=== PATIENT | female | born 1990 | race Two or more races ===

== ENCOUNTER 2017-04-12 17:01 | Emergency (ER) | payer MEDICAID, OTHER ==
[~2017-04-12] VITALS: Ht 162.6 cm; Wt 8.0 kg
[2017-04-12] MEDS ORDERED: ACETAMINOPHEN 325MG TABLET PO ONE (20:30)
[2017-04-12 22:24] VITALS: BP 106/65
== END 2017-04-12 22:42 | disposition home or self-care (01) ==
LOC: ER 17:01
DX: S69.91XA Unspecified injury of right wrist, hand and finger(s), initial encounter (principal); X58.XXXA Exposure to other specified factors, initial encounter; Y93.89 Activity, other specified; Y92.89 Other specified places as the place of occurrence of the external cause; Y99.8 Other external cause status
CPT/HCPCS: 29125; 73100; 81025; 99284

== ENCOUNTER 2017-11-25 18:48 | Emergency (ER) | payer OTHER ==
[~2017-11-25] VITALS: Ht 162.6 cm; Wt 97.0 kg
[2017-11-25 20:05] LABS: CLARITY URINE CLEAR (CLEAR); COLOR URINE YELLOW (YELLOW); KETONES URINE TRACE (NEGATIVE); LEUKOCYTE ESTERASE URINE TRACE (NEGATIVE); NITRITE URINE NEGATIVE (NEGATIVE); OCCULT BLOOD URINE 1+ (NEGATIVE); PH URINE 5.5 (4.5-8.0); PROTEIN URINE NEGATIVE (NEGATIVE); SPECIFIC GRAVITY URINE 1.028 (1.005-1.030); UROBILINOGEN URINE 0.2 E.U./dL (0.2-1.0)
[2017-11-25 23:55] LABS: BASOPHILS % 0.9 % (0.0-2.0); EOSINOPHILS % 1.6 % (0.0-5.0); HEMATOCRIT. 38.5 % (36.0-48.0); HEMOGLOBIN. 12.9 g/dL (12.0-16.0); LYMPHOCYTES % 34.5 % (20.0-50.0); MEAN CORPUSCULAR HEMOGLOBIN 29.4 pg (28.0-32.0); MEAN CORPUSCULAR VOLUME 87.7 fL (81.0-99.0); MEAN PLATELET VOLUME 8.3 fl (7.4-10.4); MONOCYTES % 9.3 % (2.0-8.0); NEUTROPHILS % 53.7 % (40.0-76.0); PLATELET 206 x1000/uL (130-400); RED BLOOD CELL COUNT 4.39 mill/uL (4.2-5.4); RED CELL DISTRIBUTION WIDTH 14.2 % (11.6-14.6)
[2017-11-25 23:56] LABS: CHLORIDE 109 mEq/L (98-107)
[2017-11-25 23:59] LABS: PROTHROMBIN TIME 10.5 sec (9.4-11.6)
[2017-11-26 00:20] LABS: B-HCG QUANTITATIVE 2634 mIU/mL (<3)
[2017-11-26 03:25] VITALS: BP 119/65
== END 2017-11-26 03:33 | disposition home or self-care (01) ==
LOC: ER 21:20
DX: O02.1 Missed abortion (principal); O23.41 Unspecified infection of urinary tract in pregnancy, first trimester; Z3A.12 12 weeks gestation of pregnancy
CPT/HCPCS: 36415; 76801; 76817; 80053; 81003; 81025; 84702; 85025; 85610; 86850; 86900; 86901; 99285; Z7610

== ENCOUNTER 2019-11-13 17:44 | Inpatient (IN) | payer MEDICAID, OTHER ==
[~2019-11-13] VITALS: Ht 162.6 cm; Wt 99.8 kg
[2019-11-13 19:14] LABS: BASOPHILS % 0.7 % (0.0-2.0); HEMATOCRIT. 39.1 % (36.0-48.0); HEMOGLOBIN. 13.3 g/dL (12.0-16.0); LYMPHOCYTES % 23.2 % (20.0-50.0); MEAN CORPUSCULAR HEMOGLOBIN 29.4 pg (28.0-32.0); MEAN CORPUSCULAR VOLUME 86.2 fL (81.0-99.0); MEAN PLATELET VOLUME 8.7 fl (7.4-10.4); MONOCYTES % 7.5 % (2.0-8.0); NEUTROPHILS % 67.6 % (40.0-76.0); PLATELET 237 x1000/uL (130-400); RED BLOOD CELL COUNT 4.53 mill/uL (4.2-5.4); RED CELL DISTRIBUTION WIDTH 14.2 % (11.6-14.6)
[2019-11-13 19:19] LABS: CHLORIDE 112 mEq/L (98-107)
[2019-11-13 19:23] LABS: ETHANOL BLOOD < 10 mg/dL
[2019-11-13] MEDS ORDERED: ACETAMINOPHEN 500MG TABLET PO ONE (20:30)
[2019-11-14 02:56] LABS: CLARITY URINE CLOUDY (CLEAR); COLOR URINE YELLOW (YELLOW); KETONES URINE 2+ (NEGATIVE); LEUKOCYTE ESTERASE URINE TRACE (NEGATIVE); NITRITE URINE NEGATIVE (NEGATIVE); OCCULT BLOOD URINE NEGATIVE (NEGATIVE); PH URINE 5.5 (4.5-8.0); PROTEIN URINE TRACE (NEGATIVE); SPECIFIC GRAVITY URINE 1.036 (1.005-1.030)
[2019-11-14 03:12] LABS: *BENZODIAZEPINES SCREEN URINE NEGATIVE (NEGATIVE); *COCAINE SCREEN URINE NEGATIVE (NEGATIVE); METHADONE URINE SCREEN NEGATIVE (NEGATIVE); OPIATES URINE SCREEN NEGATIVE (NEGATIVE)
[2019-11-14 03:13] LABS: *AMPHETAMINES SCREEN URINE NEGATIVE (NEGATIVE); *BARBITURATES SCREEN URINE NEGATIVE (NEGATIVE); CANNABINOID URINE SCREEN NEGATIVE (NEGATIVE); PHENCYCLIDINE URINE SCREEN NEGATIVE (NEGATIVE)
[2019-11-14] MEDS ORDERED: ACETAMINOPHEN 325MG TABLET PO PRN (06:30)
[2019-11-14] MEDS ORDERED: CEFTRIAXONE 1 G PREMIX 50 ML IV SCH (08:00)
[2019-11-14] MEDS: ASPIRIN 325MG EC TABLET PO SCH (08:39)
[2019-11-14] MEDS ORDERED: ONDANSETRON HCL 4MG/2ML INJ IV PRN (10:00)
[2019-11-14 16:00] VITALS: BP 106/64
[2019-11-14 16:01] VITALS: BP 106/64
[2019-11-14 20:00] VITALS: BP 105/60
[2019-11-15] VITALS: BP 95/52
[2019-11-15 04:00] VITALS: BP 101/62
[2019-11-15 08:00] VITALS: BP 106/63
[2019-11-15 08:42] LABS: UCG SCREEN NEGATIVE
[2019-11-15] MEDS: ASPIRIN 325MG EC TABLET PO SCH (08:54)
[2019-11-15] MEDS ORDERED: GADOBENATE DIMEGLUMINE 529 MG/ML 10ML IV ONE (11:02)
[2019-11-15 12:00] VITALS: BP 116/74
[2019-11-15 12:03] LABS: T4 FREE 0.95 ng/dL (0.76-1.46)
[2019-11-15 12:17] LABS: FOLIC ACID (FOLATE) SERUM 19.2 ng/mL (>5.38)
[2019-11-15 16:00] VITALS: BP 100/59
[2019-11-15 20:00] VITALS: BP 101/65
[2019-11-15] MEDS: METHYLPREDNISOLONE SOD SUCC 500 MG in DEXT 5% WATER 100 ML IV SCH (21:42)
[2019-11-16] VITALS: BP 95/65
[2019-11-16 04:00] VITALS: BP 94/57
[2019-11-16 05:07] LABS: HIV SCREEN 4G Non Reactive (Non Reactive)
[2019-11-16 06:18] LABS: PROTHROMBIN TIME 10.4 sec (9.6-11.0)
[2019-11-16 08:00] VITALS: BP 102/67
[2019-11-16] MEDS ORDERED: FAMOTIDINE 20MG TABLET PO SCH (09:00)
[2019-11-16 12:00] VITALS: BP 106/66
[2019-11-16] MEDS: METHYLPREDNISOLONE SOD SUCC 500 MG in DEXT 5% WATER 100 ML IV SCH (17:22)
[2019-11-16 19:25] VITALS: BP 101/73
== END 2019-11-16 20:34 | disposition home health service (06) | DRG 43 ==
LOC: ER 17:44 → EDBEDREQ 18:20 → 6EST 20:22 → EDBEDREQ 20:26 → EDBEDREQTM 20:26 → EDBEDREQSVC 11-14 09:01 → EDBEDREQTM 11-14 10:55 → EDBEDREQDT 11-14 10:55 → EDBEDREQSVC 11-14 11:23 → ENRESERV 11-14 13:57
PROVIDERS: ADMIT Internal Medicine; ATTEND Internal Medicine
DX: G35 Multiple sclerosis (principal); E87.8 Other disorders of electrolyte and fluid balance, not elsewhere classified; E66.9 Obesity, unspecified; Z68.37 Body mass index [BMI] 37.0-37.9, adult; Z71.3 Dietary counseling and surveillance
CPT/HCPCS: 36415; 70551; 70552; 72156; 80053; 80305; 80320; 81003; 81025; 82040; 82042; 82607; 82746; 82784; 82962; 83036; 83873; 83916; 84439; 84443; 84481; 85025; 85651; 87389; 93005; 97116; 97162; 97166; 99285; A9577; J0696; J2930; J7060; G0480

== ENCOUNTER 2021-03-27 10:03 | Inpatient (IN) | payer MEDICAID ==
[~2021-03-27] VITALS: Ht 162.6 cm; Wt 107.0 kg
[2021-03-27 10:55] LABS: BASOPHILS % 0.8 % (0.0-2.0); EOSINOPHILS % 0.8 % (0.0-5.0); HEMATOCRIT. 40.1 % (36.0-48.0); HEMOGLOBIN. 13.6 g/dL (12.0-16.0); MEAN CORPUSCULAR HEMOGLOBIN 29.7 pg (28.0-32.0); MEAN CORPUSCULAR VOLUME 87.7 fL (81.0-99.0); MEAN PLATELET VOLUME 8.3 fl (7.4-10.4); MONOCYTES % 7.1 % (2.0-8.0); NEUTROPHILS % 57.3 % (40.0-76.0); PLATELET 226 x1000/uL (130-400); RED BLOOD CELL COUNT 4.58 mill/uL (4.2-5.4); RED CELL DISTRIBUTION WIDTH 14.2 % (11.6-14.6)
[2021-03-27 11:00] LABS: CLARITY URINE CLEAR (CLEAR); COLOR URINE YELLOW (YELLOW); KETONES URINE NEGATIVE (NEGATIVE); LEUKOCYTE ESTERASE URINE 1+ (NEGATIVE); NITRITE URINE NEGATIVE (NEGATIVE); OCCULT BLOOD URINE NEGATIVE (NEGATIVE); PROTEIN URINE NEGATIVE (NEGATIVE); SPECIFIC GRAVITY URINE 1.025 (1.005-1.030)
[2021-03-27] MEDS ORDERED: METHYLPREDNISOLONE SOD SUCC 500 MG in DEXT 5% WATER 100 ML IV ONE (11:00)
[2021-03-27 11:02] LABS: CHLORIDE 108 mEq/L (98-107)
[2021-03-27] MEDS ORDERED: METHYLPREDNISOLONE SOD SUCC 500 MG in DEXT 5% WATER 100 ML IV NR (11:15)
[2021-03-27] MEDS ORDERED: NITROFURANTOIN 100MG M/M CAPSULE PO ONE (16:00)
[2021-03-27 20:00] VITALS: BP 109/64
[2021-03-27] MEDS ORDERED: HYDROCODONE/ACETAMINOPHEN 5/325MG TABLET PO PRN (21:15)
[2021-03-28 00:26] VITALS: BP 96/59
[2021-03-28 04:00] VITALS: BP 103/53
[2021-03-28 08:25] VITALS: BP 105/67
[2021-03-28] MEDS ORDERED: PNEUMOCOCCAL 23-VAL P-SAC VAC 0.5 ML IM ONE (10:00)
[2021-03-28] MEDS ORDERED: NALOXONE HCL 0.4MG/ML VIAL IV PRN (10:45)
[2021-03-28] MEDS ORDERED: METHYLPREDNISOLONE SOD SUCC 500 MG in DEXT 5% WATER 100 ML IV NR (12:00)
[2021-03-28] MEDS: FAMOTIDINE 20MG TABLET PO SCH ×2 (12:05→21:18)
[2021-03-28 12:15] VITALS: BP 105/61
[2021-03-28 16:15] VITALS: BP 113/73
[2021-03-28] MEDS ORDERED: GADOTERATE MEGLUMINE 5 MMOL/10 ML VIAL IV ONE (19:09)
[2021-03-28 20:14] VITALS: BP 101/49
[2021-03-29 00:17] VITALS: BP 94/54
[2021-03-29 04:00] VITALS: BP 95/52
[2021-03-29 08:01] VITALS: BP 86/52
[2021-03-29] MEDS: FAMOTIDINE 20MG TABLET PO SCH ×2 (08:50→20:09)
[2021-03-29] MEDS: METHYLPREDNISOLONE SOD SUCC 500 MG in DEXT 5% WATER 100 ML IV SCH (10:47)
[2021-03-29 11:43] VITALS: BP 93/56
[2021-03-29 16:01] VITALS: BP 94/55
[2021-03-29 20:00] VITALS: BP 115/61
[2021-03-30] VITALS: BP 98/56
[2021-03-30 04:00] VITALS: BP 104/58
[2021-03-30 08:00] VITALS: BP 101/51
[2021-03-30] MEDS: FAMOTIDINE 20MG TABLET PO SCH ×2 (08:15→21:26)
[2021-03-30] MEDS: METHYLPREDNISOLONE SOD SUCC 500 MG in DEXT 5% WATER 100 ML IV SCH (10:37)
[2021-03-30 12:00] VITALS: BP 107/75
[2021-03-30 16:00] VITALS: BP 99/56
[2021-03-30 20:00] VITALS: BP 97/60
[2021-03-31] VITALS: BP 98/53
[2021-03-31 04:00] VITALS: BP 110/55
[2021-03-31 08:00] VITALS: BP 103/62
[2021-03-31] MEDS: FAMOTIDINE 20MG TABLET PO SCH (09:21)
[2021-03-31] MEDS: METHYLPREDNISOLONE SOD SUCC 500 MG in DEXT 5% WATER 100 ML IV SCH (09:48)
[2021-03-31 12:00] VITALS: BP 110/55
[2021-03-31 15:25] VITALS: BP 112/60
[2021-03-31 16:00] VITALS: BP 107/55
== END 2021-03-31 16:45 | disposition home or self-care (01) | DRG 43 ==
LOC: ER 10:03 → 6WST 12:26 → ENRESERV 19:03
PROVIDERS: ADMIT Internal Medicine; ATTEND Internal Medicine
DX: G35 Multiple sclerosis (principal); E87.8 Other disorders of electrolyte and fluid balance, not elsewhere classified; E66.9 Obesity, unspecified; R20.0 Anesthesia of skin; Z91.19 Patient's noncompliance with other medical treatment and regimen; Z68.41 Body mass index [BMI] 40.0-44.9, adult; Z71.3 Dietary counseling and surveillance; N39.0 Urinary tract infection, site not specified
CPT/HCPCS: 36415; 70551; 70552; 71045; 72156; 80053; 81003; 82962; 83880; 84484; 85025; 93005; 97161; 97165; 99285; A9577; J2930; J7060

== ENCOUNTER 2022-06-15 12:25 | Emergency (ER) | payer MEDICAID ==
[~2022-06-15] VITALS: Ht 162.6 cm; Wt 104.0 kg
[2022-06-15 12:28] VITALS: BP 117/78
[2022-06-15] MEDS ORDERED: PREDNISONE 20MG TABLET PO ONE (13:30)
[2022-06-15] MEDS ORDERED: ACETAMINOPHEN 500MG TABLET PO ONE (13:30)
[2022-06-15] MEDS ORDERED: ACET-2708 MT (14:10)
[2022-06-15] MEDS ORDERED: P50 MT (14:10)
== END 2022-06-15 14:58 | disposition home or self-care (01) ==
LOC: ER 12:25
DX: R20.2 Paresthesia of skin (principal); Z98.890 Other specified postprocedural states
CPT/HCPCS: 72125; 81025; 99284; J7512

== ENCOUNTER 2022-09-19 14:46 | Emergency (ER) | payer MEDICAID ==
[~2022-09-19] VITALS: Ht 162.6 cm; Wt 95.0 kg
[~2022-09-19 14:46] MED LIST: ACET-2708 MT; P50 MT
[2022-09-19] MEDS ORDERED: IBUPROFEN 400MG TABLET PO ONE (16:45)
[2022-09-19 17:05] VITALS: BP 125/88
[2022-09-19] MEDS ORDERED: AMOX1TAB16 MT (18:28)
[2022-09-19] MEDS ORDERED: IBUP-2028 MT (18:33)
== END 2022-09-19 18:50 | disposition home or self-care (01) ==
LOC: ER 14:46
DX: J02.9 Acute pharyngitis, unspecified (principal)
CPT/HCPCS: 81025; 87070; 87430; 99283

== ENCOUNTER 2024-10-01 15:17 | Emergency (ER) | payer MEDICAID ==
[~2024-10-01] VITALS: Ht 165.1 cm; Wt 95.2 kg
[~2024-10-01 15:17] MED LIST changes: +AMOX1TAB16 MT; +IBUP-2028 MT
[2024-10-01 15:22] VITALS: TEMP 36.8; O2SAT 98
[2024-10-01 15:23] VITALS: O2SAT 100
[2024-10-01] MEDS: SODIUM CHLORIDE 0.9% 1,000 ML IV ONE (17:15)
[2024-10-01] MEDS: METOCLOPRAMIDE HCL 10MG/2ML VIAL IV ONE (17:22)
[2024-10-01 17:23] VITALS: BP 117/78; PULSE 84; RESP 18
[2024-10-01] MEDS: KETOROLAC 30MG/ML VIAL IV STA (17:23)
[2024-10-01] MEDS: DIPHENHYDRAMINE 50MG/ML VIAL IV ONE (17:23)
== END 2024-10-01 18:49 | disposition home or self-care (01) ==
LOC: ER 15:17
DX: R51.9 Headache, unspecified (principal); H53.8 Other visual disturbances; R42 Dizziness and giddiness; M54.2 Cervicalgia; Z79.899 Other long term (current) drug therapy
CPT/HCPCS: 96361; 96374; 96375; 99284; J1200; J1885; J2765; J7030; Z7610 ×5; A4606